=== PATIENT | male | born 1990 | race Caucasian/White ===

== ENCOUNTER 2017-11-22 10:24 | Day surgery (SDC) | payer OTHER ==
[2017-11-22] MEDS ORDERED: PROPOFOL 60 ML (12:03)
[2017-11-22] MEDS ORDERED: LIDOCAINE 2% (SDV) 5 ML INJ (12:03)
[2017-11-22] MEDS ORDERED: METOCLOPRAMIDE 10 MG INJ (12:04)
[2017-11-22] MEDS ORDERED: ONDANSETRON 4 MG INJ (12:04)
== END 2017-11-22 17:03 | disposition home or self-care (01) ==
LOC: GIL 10:24
DX: K29.50 Unspecified chronic gastritis without bleeding (principal); K31.84 Gastroparesis; I10 Essential (primary) hypertension; E03.9 Hypothyroidism, unspecified
CPT/HCPCS: 43239; 88305; 88312